=== PATIENT | female | born 1990 ===

== ENCOUNTER 2020-05-19 02:10 | Emergency (ER) | payer MEDICAID ==
[~2020-05-19] VITALS: Ht 172.7 cm; Wt 97.7 kg
[2020-05-19 02:17] VITALS: BP 154/103
== END 2020-05-19 04:06 | disposition home or self-care (01) ==
LOC: ER 02:11
DX: F10.129 Alcohol abuse with intoxication, unspecified (principal); V89.2XXA Person injured in unspecified motor-vehicle accident, traffic, initial encounter; Y93.89 Activity, other specified; Y92.89 Other specified places as the place of occurrence of the external cause; Y99.8 Other external cause status; Y90.9 Presence of alcohol in blood, level not specified
CPT/HCPCS: 99283